=== PATIENT | female | born 1945 | race Caucasian/White ===

== ENCOUNTER 2018-11-30 01:33 | Emergency (ER) | payer OTHER ==
[~2018-11-30] VITALS: Ht 162.6 cm; Wt 79.8 kg
[2018-11-30] MEDS ORDERED: OMEPRAZOLE40 MG PO (01:41)
[2018-11-30] MEDS ORDERED: ZOLOFT50 MG PO (01:41)
[2018-11-30] MEDS ORDERED: PREDNISONE50 MG PO (03:14)
[2018-11-30 03:58] VITALS: BP 147/69
== END 2018-11-30 03:59 | disposition home or self-care (01) ==
LOC: M.ERS 01:33
DX: T78.40XA Allergy, unspecified, initial encounter (principal); Z90.710 Acquired absence of both cervix and uterus; Z88.0 Allergy status to penicillin; Z88.5 Allergy status to narcotic agent; Z88.8 Allergy status to other drugs, medicaments and biological substances; X58.XXXA Exposure to other specified factors, initial encounter